=== PATIENT | female | born 1990 | race Hispanic/Latino ===

== ENCOUNTER 2023-08-24 09:45 | Emergency (ER) | payer OTHER ==
[~2023-08-24] VITALS: Ht 162.6 cm; Wt 104.3 kg
[2023-08-24 09:48] VITALS: BP 118/60; PULSE 76; RESP 18
[2023-08-24] MEDS: CYCLOBENZAPRINE HCL 10 MG TABLET PO ONE (11:12)
[2023-08-24] MEDS: KETOROLAC 60 MG VIAL (30MG/ML) IM ONE (11:12)
[2023-08-24 11:36] LABS: HCG,QUALITATIVE URINE NEGATIVE (NEGATIVE)
[2023-08-24 11:37] LABS: APPEARANCE,URINE CLEAR (CLEAR); BILIRUBIN,URINE NEGATIVE (NEGATIVE); COLOR,URINE LIGHT-YELLOW (YELLOW); GLUCOSE, URINE (UA) NEGATIVE (NEGATIVE); KETONES,URINE NEGATIVE (NEGATIVE); LEUKOCYTE ESTERASE ,URINE NEGATIVE Leu/uL (NEGATIVE); NITRATE,URINE NEGATIVE (NEGATIVE); OCCULT BLOOD,URINE MODERATE (NEGATIVE); PROTEIN,URINE NEGATIVE (NEGATIVE); UROBILINOGEN,URINE 0.2 mg/dL (0.2-1.0)
[2023-08-24 11:40] LABS: ADD UA MICROSCOPIC YES
[2023-08-24 11:41] LABS: MUCUS,URINE RARE LPF (None Seen); SQUAMOUS EPITHELIAL CELL,UR FEW /HPF (0-2)
[2023-08-24] MEDS ORDERED: IBUP-2077 PO (11:49)
[2023-08-24] MEDS ORDERED: METH4TAB3 PO (11:49)
[2023-08-24] MEDS ORDERED: CYCL10TA16 PO (11:49)
== END 2023-08-24 12:44 | disposition home or self-care (01) ==
LOC: EDH 09:45
DX: M54.41 Lumbago with sciatica, right side (principal); Z90.49 Acquired absence of other specified parts of digestive tract
CPT/HCPCS: 99284; 81001; 81025; 72100; 96372; J1885